=== PATIENT | female | born 1975 | race Caucasian/White ===

== ENCOUNTER 2018-10-09 22:39 | Emergency (ER) | payer OTHER ==
[2018-10-10] MEDS ORDERED: MECLIZINE HCL 25 MG TABLET PO ONE (01:42)
[2018-10-10] MEDS ORDERED: DIPHENHYDRAMINE HCL 50 MG/ML VIAL IV ONE (01:42)
[2018-10-10] MEDS ORDERED: NORMAL SALINE 1000 ML 1,000 ML IV ONE (01:42)
[2018-10-10] MEDS ORDERED: METOCLOPRAMIDE HCL INJ/PF 10 MG/2 ML SDV IV ONE (01:42)
[2018-10-10 03:42] LABS: ABSOLUTE BASOPHILS # (AUTO) 0.1 10^3/uL (0.0-0.2); ABSOLUTE EOSINOPHILS # (AUTO) 0.2 10^3/uL (0.0-0.6); ABSOLUTE MONOCYTES (AUTO) 0.5 10^3/uL (0.1-1.4); ABSOLUTE NEUT (AUTO) 2.8 10^3/uL (1.7-8.2); EOSINOPHILS % (AUTO) 2.7 % (0-6); HEMATOCRIT 35.8 % (36.0-47.0); HEMOGLOBIN 12.2 g/dL (12.0-15.5); LYMPHOCYTES % (AUTO) 36.5 % (13-45); MEAN CORPUSCULAR HEMOGLOBIN 30.2 pg (27.0-33.4); MEAN CORPUSCULAR HGB CONC 34.1 g/dL (32.0-36.0); MEAN CORPUSCULAR VOLUME 89 fl (80-97); MONOCYTES % (AUTO) 8.7 % (3-13); PLATELET COUNT 270 10^3/uL (150-450); RED BLOOD COUNT 4.05 10^6/uL (3.72-5.28); SEGMENTED NEUTROPHILS % (AUTO) 51.1 % (42-78); TOTAL CELLS COUNTED % (AUTO) 100 %; WHITE BLOOD COUNT 5.6 10^3/uL (4.0-10.5)
[2018-10-10 03:51] LABS: ALANINE AMINOTRANSFERASE 20 U/L (9-52); ALBUMIN 3.4 g/dL (3.5-5.0); ALKALINE PHOSPHATASE 51 U/L (38-126); ANION GAP 8 (5-19); ASPARTATE AMINO TRANSFERASE 14 U/L (14-36); BILIRUBIN,DIRECT 0.2 mg/dL (0.0-0.4); BILIRUBIN,TOTAL 0.4 mg/dL (0.2-1.3); BLOOD UREA NITROGEN 8 mg/dL (7-20); CALCIUM 8.7 mg/dL (8.4-10.2); CARBON DIOXIDE 23 mmol/L (22-30); CHLORIDE 107 mmol/L (98-107); GLUCOSE 206 mg/dL (75-110); POTASSIUM 3.7 mmol/L (3.6-5.0); SODIUM 137.8 mmol/L (137-145); TOTAL PROTEIN 5.8 g/dL (6.3-8.2)
--- NOTE | 2018-10-10 04:02 | ER Document Report ---
ED General - General Chief Complaint: Dizziness Stated Complaint: DIZZINESS Time Seen by Provider: 10/10/18 01:31 Mode of Arrival: Ambulatory Information source: Patient, Relative Notes: Visiting from out of town with history of Mnire's disease, Tony's thyroiditis, migraine headaches, type 1 diabetes, celiac's presents with complaint of dizziness, nasal congestion, headache and concern for elevated blood pressure. Patient describes the dizziness as a sensation of the room moving. She states it is worse with sitting up, head movement and lasts approximately 30 to 60 seconds. States she has had prior similar symptoms and contributed to her Mnire's disease. Patient's headache is located in her forehead and has been present for 3 days. She describes it as a thumping pain. She has had similar headaches. Patient also states that after recent evaluation by her primary care physician she noted to have elevated blood pressure of 150/90 and was advised to buy a blood pressure cuff and keep track of her blood pressure readings. Patient reports blood pressure readings of systolics from 140-150 and diastolics from 70-90. Patient denies visual changes, slurred speech, difficulty with ambulation, weakness, fever, chills, chest pain, shortness of breath. Reports sugars have been running in the 120s. - HPI Onset: Other Onset/Duration: Gradual, Persistent Quality of pain: Throbbing Severity: Moderate Pain Level: 1 Associated symptoms: Headache, Other - dizziness. denies: Body/muscle aches, Chest pain, Diarrhea, Nausea, Vomiting, Shortness of breath Exacerbated by: Sitting, Movement Relieved by: Remaining still Similar symptoms previously: Yes Recently seen / treated by doctor: Yes - Related Data Allergies/Adverse Reactions: amoxicillin [From Augmentin] Allergy (Verified 10/09/18 22:46) Hives cefdinir [From Omnicef] Allergy (Verified 10/09/18 22:46) ciprofloxacin [From Cipro] Allergy (Verified 10/09/18 22:46) clavulanic acid [From Augmentin] Allergy (Verified 10/09/18 22:46) Hives garlic Allergy (Verified 10/09/18 22:46) Hives gluten Allergy (Verified 10/09/18 22:46) GI upset moxifloxacin [From Avelox] Allergy (Verified 10/09/18 22:46) Hives onion Allergy (Verified 10/09/18 22:46) Hives Past Medical History - General Information source: Patient - Social History Smoking Status: Current Every Day Smoker Cigarette use (# per day): Yes - 5 Smoking Education Provided: Yes - Smoking cessation counseling was provided for 4 minutes at the bedside Frequency of alcohol use: None Drug Abuse: None Lives with: Spouse/Significant other Family History: Reviewed & Not Pertinent Patient has suicidal ideation: No Patient has homicidal ideation: No EENT Medical History: Reports: Other - meniere's Endocrine Medical History: Reports: Hx Diabetes Mellitus Type 1, Hx Hypothyroidism Renal/ Medical History: Denies: Hx Peritoneal Dialysis Musculoskeletal Medical History: Reports Hx Systemic Lupus Erythematosus Review of Systems - Review of Systems Constitutional: denies: Weakness, Weight loss, Recent illness EENT: Nose congestion, Sinus pressure. denies: Difficulty swallowing Cardiovascular: denies: Chest pain, Palpitations Respiratory: denies: Cough, Short of breath Gastrointestinal: denies: Abdomen distended, Vomiting, Poor appetite Genitourinary: denies: Dysuria, Flank pain Female Genitourinary: denies: Vaginal discharge Musculoskeletal: denies: Back pain Skin: denies: Rash Hematologic/Lymphatic: No symptoms reported Neurological/Psychological: Headaches -: Yes All other systems reviewed and negative Physical Exam - Vital signs Vitals: Temp Pulse Resp BP Pulse Ox 97.8 F 88 16 135/91 H 98 10/09/18 23:05 10/09/18 23:05 10/09/18 23:05 10/09/18 23:05 10/09/18 23:05 - Notes Notes: PHYSICAL EXAMINATION: GENERAL: Well-appearing, well-nourished and in no acute distress. HEAD: Atraumatic, normocephalic. EYES: Pupils equal round and reactive to light, extraocular movements intact, conjunctiva are normal. Left-sided horizontal nystagmus ENT: Nares patent, oropharynx clear without exudates. Moist mucous membranes. NECK: Normal range of motion, supple without lymphadenopathy LUNGS: Breath sounds clear to auscultation bilaterally and equal. No wheezes rales or rhonchi. HEART: Regular rate and rhythm without murmurs ABDOMEN: Soft, nontender, nondistended abdomen. No guarding, no rebound. No masses appreciated. Female : deferred Musculoskeletal: Normal range of motion, no pitting or edema. No cyanosis. NEUROLOGICAL: Cranial nerves grossly intact. Normal speech, normal gait. Normal sensory, motor exams PSYCH: Normal mood, normal affect. SKIN: Warm, Dry, normal turgor, no rashes or lesions noted. Course - Re-evaluation Re-evalutation: 10/11/18 10:09 Laboratory 10/10/18 10/10/18 03:32 03:32 WBC 5.6 RBC 4.05 Hgb 12.2 Hct 35.8 L MCV 89 MCH 30.2 MCHC 34.1 RDW 13.0 Plt Count 270 Seg Neutrophils % 51.1 Lymphocytes % 36.5 Monocytes % 8.7 Eosinophils % 2.7 Basophils % 1.0 Absolute Neutrophils 2.8 Absolute Lymphocytes 2.0 Absolute Monocytes 0.5 Absolute Eosinophils 0.2 Absolute Basophils 0.1 Sodium 137.8 Potassium 3.7 Chloride 107 Carbon Dioxide 23 Anion Gap 8 BUN 8 Creatinine 0.37 L Est GFR ( Amer) > 60 Est GFR (Non-Af Amer) > 60 Glucose 206 H Calcium 8.7 Total Bilirubin 0.4 Direct Bilirubin 0.2 Neonat Total Bilirubin Not Reportable Neonat Direct Bilirubin Not Reportable Neonat Indirect Bili Not Reportable AST 14 ALT 20 Alkaline Phosphatase 51 Total Protein 5.8 L Albumin 3.4 L Temp Pulse Resp BP Pulse Ox 97.8 F 75 20 109/69 94 10/09/18 23:05 10/10/18 03:17 10/10/18 03:17 10/10/18 05:31 10/10/18 05:31 10/11/18 10:10 Visiting from out of town with history of Mnire's disease, Tony's thyroiditis, migraine headaches, type 1 diabetes, celiac's presents with complaint of dizziness, nasal congestion, headache and concern for elevated blood pressure. Signs reviewed and he does not appear toxic or dehydrated. Exam is significant for left-sided horizontal nystagmus peer with rapid head movement and sitting up. Patient did receive Reglan, Benadryl, IV fluids for her headache. Meclizine was offered but patient declined. On reevaluation patient is resting comfortably. I did explain in detail that the blood pressure reading of 135/91 did not warrant acute treatment. CBC is without leukocytosis or anemia. CMP shows hyperglycemia without evidence of DKA. Patient was discharged home in stable condition. 10/11/18 10:10 Patient was evaluated and treated as appropriate for the patient's presenting symptoms and complaint, with consideration of any critical or life threatening conditions that may be associated with their obtained history and exam as noted above. All results were discussed with patient and Her who is at the bedside. Patient provided the opportunity to ask questions, and express concerns. Patient was educated on treatments based on their presumed diagnosis as noted above. At this time we will discharge the patient with return precautions and follow-up recommendations. Verbal discharge instructions given a the bedside. Medication warnings reviewed. Patient is in agreement with this plan and has verbalized understanding of return precautions. After careful consideration I feel that that patient can be safely discharged from the emergency department, they were advised to followup with a primary care physician in 2-3 days. Dictation on this chart was performed using voice recognition software and may result in unintended grammatical, spelling, syntax or errors. - Vital Signs Vital signs: Temp Pulse Resp BP Pulse Ox 97.8 F 75 20 109/69 94 10/09/18 23:05 10/10/18 03:17 10/10/18 03:17 10/10/18 05:31 10/10/18 05:31 - Laboratory Result Diagrams: 10/10/18 03:32 10/10/18 03:32 Laboratory results interpreted by me: 10/10/18 10/10/18 03:32 03:32 Hct 35.8 L Creatinine 0.37 L Glucose 206 H Total Protein 5.8 L Albumin 3.4 L Discharge - Discharge Clinical Impression: Dizziness Headache Qualifiers: Headache type: unspecified Headache chronicity pattern: unspecified pattern Intractability: not intractable Qualified Code(s): R51 - Headache Condition: Good Disposition: HOME, SELF-CARE Instructions: Antinausea Medication ([facility]), Dizziness ([facility]), Headache ([facility]), Meclizine ([facility]), Vertigo ([facility]) Additional Instructions: Regarding Blood Pressure: Your blood pressure was noted to be greater than 120/80 at least once in the emergency room today. It is recommended that you follow-up with her primary care physician in the next week for repeat blood pressure check. The Centers for Medicare and Medicaid Services has specific recommendations regarding a person's blood pressure. There are several lifestyle modifications that are recommended in order to help lower your blood pressure. These include: Quitting smoking if you smoke. Reducing the amount of sodium in your diet. Getting regular exercise Limiting alcohol to no more than 2 drinks a day for men and one drink a day for women. Eating a healthy diet, including more fruits and vegetables, low fat dairy products, less saturated and total fat. Losing weight if you are overweight. FOLLOW-UP: Call your doctor's office and let them know your blood pressure was elevated and you were advised to get your blood pressure checked in the above time-line. If you are unable to get into your doctor's office in this time period, you can follow-up with a new physician (I have left the numbers below for a few primary care doctors affiliated [facility]) or return to the ER. PRIMARY CARE PHYSICIANS: Dr. Dawood Padilla [address], [place] [address] [phone] [address] Brooks Address: [address] [place] [address] , [place] [address] Dr Law Address: [address] [place] [address] , [place] [address] Prescriptions: Meclizine HCl 25 mg PO Q8H #12 tab.chew Forms: Elevated Blood Pressure
[2018-10-10 05:34] VITALS: BP 109/69
== END 2018-10-10 05:48 | disposition home or self-care (01) ==
LOC: ER 22:39
DX: H81.09 Meniere's disease, unspecified ear (principal); R51 Headache; R09.81 Nasal congestion; R03.0 Elevated blood-pressure reading, without diagnosis of hypertension; F17.210 Nicotine dependence, cigarettes, uncomplicated; M32.9 Systemic lupus erythematosus, unspecified; E10.9 Type 1 diabetes mellitus without complications; E06.3 Autoimmune thyroiditis; Z88.0 Allergy status to penicillin; Z88.3 Allergy status to other anti-infective agents
CPT/HCPCS: 99284; 96361; 36415; 85025; 80053; J7030